=== PATIENT | female | born 1950 | race Caucasian/White ===

== ENCOUNTER 2018-12-04 08:20 | Emergency (ER) | payer MEDICARE, OTHER ==
[~2018-12-04] VITALS: Ht 160 cm; Wt 86.4 kg
[~2018-12-04 08:20] MED LIST: ACET-66 PO; AMOX1TAB16 PO; ASPI-1182 PO; GLIP10TA9 PO; IBUP-2077 PO; LEVO250 PO; LOSA25TA41 PO; METF-960 PO; OMEP20 PO; SIMV5TAB59 PO
[2018-12-04 08:35] LABS: GLUCOSE,POINT OF CARE 279 MG/DL (70-110)
[2018-12-04] MEDS ORDERED: ONDANSETRON HCL 4 MG TABLET PO ONE (09:00)
[2018-12-04] MEDS ORDERED: ACETAMINOPHEN 500 MG TABLET PO ONE (09:00)
[2018-12-04] MEDS ORDERED: KETOROLAC TROMETHAMINE 60 MG/2 ML VIAL IM ONE (09:00)
[2018-12-04 09:12] LABS: BASOPHILS % (AUTO) 1.3 % (0.0-2.0); EOSINOPHILS % (AUTO) 3.8 % (1.0-6.0); HEMATOCRIT 43.6 % (36-46); HEMOGLOBIN 14.6 g/dL (12.0-16.0); LYMPHOCYTES # (AUTO) 1.5 K/uL (1.0-4.8); LYMPHOCYTES % (AUTO) 15.9 % (22.0-44.0); MEAN CORPUSCULAR HEMOGLOBIN 29.1 pg (26.0-34.0); MEAN CORPUSCULAR HGB CONC 33.5 G/dL (31.0-37.0); MEAN CORPUSCULAR VOLUME 87 fL (80-100); MONOCYTES # (AUTO) 0.6 K/uL (0.1-1.0); MONOCYTES % (AUTO) 6.1 % (2.0-9.0); NEUTROPHILS # (AUTO) 6.7 K/uL (1.8-7.7); NEUTROPHILS % (AUTO) 72.9 % (40.0-70.0); PLATELET COUNT (AUTO) 372 K/uL (150-450); RED BLOOD CELL COUNT(AUTO) 5.02 MIL/uL (4.00-5.20); RED CELL DISTRIBUTION WIDTH 13.2 % (11.5-14.5)
[2018-12-04 09:24] LABS: CALCIUM, TOTAL 9.7 mg/dL (8.8-10.5); CREATININE 1.1 mg/dL (0.60-1.30); POTASSIUM 4.9 mmol/L (3.5-5.1)
[2018-12-04 09:29] LABS: ALBUMIN 3.9 g/dL (3.4-5.0); BILIRUBIN,TOTAL 0.4 mg/dL (0.1-1.0); TOTAL PROTEIN, SERUM 7.9 g/dL (6.4-8.2)
[2018-12-04] MEDS ORDERED: BACLOFEN 10 MG TABLET PO ONE (10:15)
[2018-12-04 11:16] LABS: APPEARANCE,URINE CLOUDY (CLEAR); GLUCOSE, URINE (UA) >=1000 mg/dL (NEGATIVE); KETONES,URINE TRACE mg/dL (NEGATIVE); LEUKOCYTE ESTERASE ,URINE SMALL (NEGATIVE); NITRATE,URINE NEGATIVE (NEGATIVE); OCCULT BLOOD,URINE NEGATIVE (NEGATIVE); PROTEIN,URINE POS 1+ (NEGATIVE)
[2018-12-04 11:21] LABS: BILIRUBIN,URINE PRELIM. POSITIVE (NEGATIVE)
[2018-12-04 11:22] LABS: RBC,URINE 0-2 /HPF (0-2)
[2018-12-04 11:23] LABS: BACTERIA,URINE Moderate /HPF (None Seen); SQUAMOUS EPITHELIAL CELL,UR Many /LPF (None Seen)
[2018-12-04 11:31] VITALS: BP 122/74
== END 2018-12-04 12:15 | disposition home or self-care (01) ==
LOC: EMS 08:22
DX: M54.5 Low back pain (principal); E11.65 Type 2 diabetes mellitus with hyperglycemia; F17.210 Nicotine dependence, cigarettes, uncomplicated; F14.90 Cocaine use, unspecified, uncomplicated; J44.9 Chronic obstructive pulmonary disease, unspecified; I25.2 Old myocardial infarction; Z88.0 Allergy status to penicillin; Z79.84 Long term (current) use of oral hypoglycemic drugs; Z79.82 Long term (current) use of aspirin; Z79.899 Other long term (current) drug therapy
CPT/HCPCS: 36415; 72070; 72100; 80053; 81001; 82962; 84484; 85025; 87086; 93005; 96372; 99284; J1885; Q0162

== ENCOUNTER 2018-12-11 11:47 | Emergency (ER) | payer MEDICARE, OTHER ==
[~2018-12-11] VITALS: Ht 162.6 cm; Wt 88.6 kg
[~2018-12-11 11:47] MED LIST changes: -AMOX1TAB16 PO; -LEVO250 PO
[2018-12-11] MEDS ORDERED: BACL10TA PO (12:17)
[2018-12-11] MEDS ORDERED: ONDANSETRON HCL 4 MG/2 ML VIAL IVP ONE (12:30)
[2018-12-11] MEDS ORDERED: SODIUM CHLORIDE 0.9% 1,000 ML IV ONE (12:30)
[2018-12-11] MEDS ORDERED: KETOROLAC TROMETHAMINE 30 MG/ML VIAL IVP ONE (12:30)
[2018-12-11 13:07] LABS: BASOPHILS % (AUTO) 1.1 % (0.0-2.0); EOSINOPHILS % (AUTO) 2.2 % (1.0-6.0); HEMOGLOBIN 14.6 g/dL (12.0-16.0); LYMPHOCYTES % (AUTO) 18.2 % (22.0-44.0); MEAN CORPUSCULAR HGB CONC 33.3 G/dL (31.0-37.0); MEAN CORPUSCULAR VOLUME 87 fL (80-100); MONOCYTES # (AUTO) 0.6 K/uL (0.1-1.0); MONOCYTES % (AUTO) 5.7 % (2.0-9.0); NEUTROPHILS # (AUTO) 7.8 K/uL (1.8-7.7); NEUTROPHILS % (AUTO) 72.8 % (40.0-70.0); PLATELET COUNT (AUTO) 435 K/uL (150-450); RED BLOOD CELL COUNT(AUTO) 5.05 MIL/uL (4.00-5.20); RED CELL DISTRIBUTION WIDTH 13.3 % (11.5-14.5)
[2018-12-11 13:21] LABS: CALCIUM, TOTAL 9.5 mg/dL (8.8-10.5); CREATININE 1.12 mg/dL (0.60-1.30); POTASSIUM 4.4 mmol/L (3.5-5.1)
[2018-12-11 13:25] LABS: ALBUMIN 4.1 g/dL (3.4-5.0); BILIRUBIN,TOTAL 0.3 mg/dL (0.1-1.0); TOTAL PROTEIN, SERUM 7.8 g/dL (6.4-8.2)
[2018-12-11 14:46] LABS: APPEARANCE,URINE CLEAR (CLEAR); BILIRUBIN,URINE NEGATIVE (NEGATIVE); GLUCOSE, URINE (UA) >=1000 mg/dL (NEGATIVE); KETONES,URINE NEGATIVE (NEGATIVE); LEUKOCYTE ESTERASE ,URINE NEGATIVE (NEGATIVE); NITRATE,URINE NEGATIVE (NEGATIVE); OCCULT BLOOD,URINE NEGATIVE (NEGATIVE); PROTEIN,URINE NEGATIVE (NEGATIVE); UROBILINOGEN,URINE 0.2 mg/dL (<=1.0)
[2018-12-11 14:55] LABS: BACTERIA,URINE None Seen /HPF (None Seen); RBC,URINE None Seen /HPF (0-2); SQUAMOUS EPITHELIAL CELL,UR Rare /LPF (None Seen); WBC,URINE None Seen /HPF (0-5)
[2018-12-11] MEDS ORDERED: LIDOCAINE 5% TRANSDERMAL PATCH TD ONE (15:15)
[2018-12-11 15:27] VITALS: BP 127/61
== END 2018-12-11 15:32 | disposition home or self-care (01) ==
LOC: EMS 11:47
DX: K59.00 Constipation, unspecified (principal); M54.9 Dorsalgia, unspecified; F17.210 Nicotine dependence, cigarettes, uncomplicated; F14.90 Cocaine use, unspecified, uncomplicated; J44.9 Chronic obstructive pulmonary disease, unspecified; E11.9 Type 2 diabetes mellitus without complications; Z88.0 Allergy status to penicillin; Z88.1 Allergy status to other antibiotic agents; Z79.84 Long term (current) use of oral hypoglycemic drugs; Z79.82 Long term (current) use of aspirin; Z79.899 Other long term (current) drug therapy; E66.01 Morbid (severe) obesity due to excess calories; Z68.33 Body mass index [BMI] 33.0-33.9, adult
CPT/HCPCS: 36415; 71045; 74176; 80053; 81001; 82962; 83690; 84484; 85025; 93005; 96374; 96375; 99285; J1885; J2405

== ENCOUNTER 2025-05-18 11:59 | Inpatient (IN) | payer MEDICARE, OTHER ==
[~2025-05-18] VITALS: Ht 154.9 cm; Wt 81.7 kg
[2025-05-18] VITALS (16 sets, daily range): BP systolic 129–164; BP diastolic 54–103; PULSE 63–110; RESP 15–32; TEMP 97.9–98.7; O2SAT 92–99
[~2025-05-18 11:59] MED LIST changes: -ASPI-1182 PO; +ASPI-1444 PO; +ATOR20TA65 PO; +AZIT-167 PO; +BACL10TA PO; +CEPH-558 PO; +FLUT1BLS IH; +FURO40TA5 PO; +GLIP10TA16 PO; -GLIP10TA9 PO; +IPRA4AER IH; +LOSA-382 PO; -LOSA25TA41 PO; +METF-1211 PO; -METF-960 PO; -OMEP20 PO; +PANT-31 PO; -SIMV5TAB59 PO
[2025-05-18 12:30] LABS: RED CELL DISTRIBUTION WIDTH 22.0 % (11.5-14.5)
[2025-05-18 12:34] LABS: CALCIUM, TOTAL 8.0 mg/dL (8.8-10.5); CREATININE 1.10 mg/dL (0.60-1.30); GLOMERULAR FILTR. RATE CALC 49 mL/min (>60); GLUCOSE,RANDOM 393 mg/dL (70-110); SODIUM SERUM 131 mmol/L (136-145); UREA NITROGEN, BLOOD 15 mg/dL (7-18)
[2025-05-18] MEDS ORDERED: FUROSEMIDE 20 MG/2 ML VIAL ONE (12:35)
[2025-05-18] MEDS ORDERED: NITROGLYCERIN 2% (1 GM=INCH) OINTMENT PACKET TP ONE (12:35)
[2025-05-18 12:36] LABS: PLATELET COUNT (AUTO) 523 K/uL (150-450); RED BLOOD CELL COUNT(AUTO) 2.65 MIL/uL (4.00-5.20); WHITE BLOOD COUNT (AUTO) 14.0 K/uL (4.5-11.0)
[2025-05-18] MEDS ORDERED: AZITHROMYCIN 500 MG/NS 250 ML IV ONE (12:36)
[2025-05-18] MEDS ORDERED: CefTRIAXone 1 GM/DEXTROSE 50 ML IV ONE (12:36)
[2025-05-18] MEDS: FUROSEMIDE 20 MG/2 ML VIAL IVP ONE (12:38)
[2025-05-18 12:39] LABS: FRACTIONATED INSPIRED OXYGEN 40.0 % (21-100.0); SOURCE, BLOOD GAS ARTERIAL; TEMPERATURE, FAHRENHEIT, BG 95.5 FAHREN (96.0-98.6)
[2025-05-18] MEDS: NITROGLYCERIN 2% (1 GM=INCH) OINTMENT PACKET TP ONE (12:39)
[2025-05-18] MEDS: AZITHROMYCIN 500 MG/NS 250 ML IV ONE (12:39)
[2025-05-18] MEDS: CefTRIAXone 1 GM/DEXTROSE 50 ML IV ONE (12:40)
[2025-05-18 12:41] LABS: GLUCOMETER DEV NAME(LOC) ER.7; GLUCOSE,POINT OF CARE 357 MG/DL (70-110)
[2025-05-18 12:41] LABS: CREATINE KINASE, TOTAL ONLY 70 U/L (26-192)
[2025-05-18 12:45] LABS: TROPONIN I-HIGH SENSITIVITY 19 ng/L (<51)
[2025-05-18 12:48] LABS: RBC MORPHOLOGY COMMENT ABNORMAL RBC MORPH
[2025-05-18] MEDS: IPRATROPIUM BROMIDE 0.5 MG/2.5 ML NEB SOLUTION NEB ONE (12:48)
[2025-05-18] MEDS: ALBUTEROL SULFATE 2.5 MG/0.5 ML NEB SOLUTION NEB ONE (12:48)
[2025-05-18 12:49] LABS: LACTIC ACID 6.4 mmol/L (0.4-2.0)
[2025-05-18 12:53] LABS: PLATELET MORPHOLOGY COMMENT LARGE PLTS PRESENT
[2025-05-18 12:57] LABS: ACETONE,BLOOD TRACE (NEGATIVE)
[2025-05-18 13:06] LABS: ABG BASE EXCESS -5.4 mmol/L (-2.0-3.0); ABG CARBOXYHEMOGLOBIN 2.6 % (0.5-1.5); ABG HCO3 20.2 mmol/L (21.0-28.0); ABG METHEMOGLOBIN 0.8 % (0.0-1.5); ABG OXYGEN CONTENT 6.9 mL/dL (15.0-23.0); ABG OXYGEN SATURATION 96.8 % (94.0-98.0); ABG OXYHEMOGLOBIN 93.5 % (94.0-98.0); ABG PCO2 29 mmHg (32.0-45.0); ABG PH 7.435 (7.350-7.450); PO2, ARTERIAL BG 80.5 mmHg (83.0-108.0)
[2025-05-18 13:10] LABS: ABG TOTAL HEMOGLOBIN 5.1 G/dL (12.0-16.0); SITE, BLOOD GAS RT BRACHIAL; VENT MODE, BG BIPAP (ROOM AIR)
[2025-05-18] MEDS ORDERED: MAGNESIUM HYDROXIDE SUSPENSION 30 ML UDCUP PO PRN (13:15)
[2025-05-18] MEDS ORDERED: BISACODYL 10 MG RECTAL RECTAL SUPPOSITORY PR PRN (13:15)
[2025-05-18] MEDS ORDERED: DEXTROSE 50%-WATER 25 GM/50 ML SYRINGE IVP PRN (13:15)
[2025-05-18] MEDS: PANTOPRAZOLE SODIUM 40 MG/VIAL IVP ONE (13:30)
[2025-05-18] MEDS ORDERED: FLUT12AE3 IH (13:40)
[2025-05-18] MEDS ORDERED: SUCR1ORA42 PO (13:40)
[2025-05-18] MEDS ORDERED: GLIP10TA17 PO (13:40)
[2025-05-18] MEDS ORDERED: ESCI20TA87 PO (13:40)
[2025-05-18] MEDS ORDERED: FERR-82 PO (13:40)
[2025-05-18] MEDS ORDERED: PANT-31 PO (13:40)
[2025-05-18] MEDS ORDERED: DOCU100C33 PO (13:40)
[2025-05-18] MEDS: INSULIN GLARGINE,HUM.REC.ANLOG 100 UNITS/ML SQ ONE (15:01)
[2025-05-18 17:12] LABS: PLATELET COUNT (AUTO) 451 K/uL (150-450); RED BLOOD CELL COUNT(AUTO) 3.12 MIL/uL (4.00-5.20); RED CELL DISTRIBUTION WIDTH 25.2 % (11.5-14.5); WHITE BLOOD COUNT (AUTO) 13.3 K/uL (4.5-11.0)
[2025-05-18 18:26] LABS: RBC MORPHOLOGY COMMENT ABNORMAL RBC MORPH
[2025-05-18] MEDS: ALBUTEROL SULFATE 2.5 MG/0.5 ML NEB SOLUTION NEB SCH (19:47)
[2025-05-18] MEDS: IPRATROPIUM BROMIDE 0.5 MG/2.5 ML NEB SOLUTION NEB SCH (19:47)
[2025-05-18] MEDS: PANTOPRAZOLE SODIUM 40 MG/VIAL IVP SCH (20:49)
[2025-05-18 21:06] LABS: ABG BASE EXCESS -4.9 mmol/L (-2.0-3.0); ABG CARBOXYHEMOGLOBIN 2.3 % (0.5-1.5); ABG HCO3 20.7 mmol/L (21.0-28.0); ABG METHEMOGLOBIN 0.3 % (0.0-1.5); ABG OXYGEN CONTENT 10.1 mL/dL (15.0-23.0); ABG OXYGEN SATURATION 94.8 % (94.0-98.0); ABG OXYHEMOGLOBIN 92.3 % (94.0-98.0); ABG PCO2 38 mmHg (32.0-45.0); ABG PH 7.351 (7.350-7.450); ABG TOTAL HEMOGLOBIN 7.7 G/dL (12.0-16.0); FRACTIONATED INSPIRED OXYGEN 40.0 % (21-100.0); PO2, ARTERIAL BG 75.0 mmHg (83.0-108.0); SOURCE, BLOOD GAS ARTERIAL; TEMPERATURE, FAHRENHEIT, BG 98.7 FAHREN (96.0-98.6)
[2025-05-18 21:09] LABS: ABG A-A DIFF O2 166.1 mmHg (10-20.0); ALLEN TEST, BLOOD GAS Positive; O2 DEVICE,BLOOD GAS CANNULA (ROOM AIR); SITE, BLOOD GAS RT BRACHIAL
[2025-05-18 21:10] LABS: PATIENT RATE, BG 28.0 min.
[2025-05-18] MEDS: INSULIN LISPRO 100 UNITS/ML SQ PRN (21:22)
[2025-05-18] MEDS: DOCUSATE SODIUM 100 MG CAPSULE PO SCH (21:24)
[2025-05-18] MEDS: CHLORHEXIDINE GLUCONATE 2% TOWELETTE [2'S/6'S] TP SCH (21:24)
[2025-05-18] MEDS: INSULIN GLARGINE,HUM.REC.ANLOG 100 UNITS/ML SQ SCH (21:24)
[2025-05-18] MEDS: ETHYL ALCOHOL 62% ANTISEPTIC NASAL SANITIZER 0.6 ML AMPUL NASAL SCH (21:30)
[2025-05-18 21:46] LABS: GLUCOMETER DEV NAME(LOC) ICUN.6; GLUCOSE,POINT OF CARE 369 MG/DL (70-110)
[2025-05-19] VITALS (17 sets, daily range): BP systolic 117–136; BP diastolic 48–64; PULSE 59–108; RESP 15–25; TEMP 98–98.3; O2SAT 88–99
[2025-05-19 07:10] LABS: GLUCOMETER DEV NAME(LOC) ICUN.6; GLUCOSE,POINT OF CARE 291 MG/DL (70-110)
[2025-05-19 07:35] LABS: CALCIUM, TOTAL 8.7 mg/dL (8.8-10.5); CREATININE 0.86 mg/dL (0.60-1.30); GLOMERULAR FILTR. RATE CALC > 60 mL/min (>60); GLUCOSE,RANDOM 296 mg/dL (70-110); SODIUM SERUM 134 mmol/L (136-145); TROPONIN I-HIGH SENSITIVITY 22 ng/L (<51); UREA NITROGEN, BLOOD 17 mg/dL (7-18)
[2025-05-19] MEDS: FUROSEMIDE 20 MG/2 ML VIAL IVP SCH (08:52)
[2025-05-19] MEDS ORDERED: FUROSEMIDE 20 MG TABLET PO SCH (09:00)
[2025-05-19 11:41] LABS: PLATELET COUNT (AUTO) 409 K/uL (150-450); RED BLOOD CELL COUNT(AUTO) 3.70 MIL/uL (4.00-5.20); RED CELL DISTRIBUTION WIDTH 23.8 % (11.5-14.5); WHITE BLOOD COUNT (AUTO) 13.2 K/uL (4.5-11.0)
[2025-05-19 12:16] LABS: GLUCOMETER DEV NAME(LOC) ICUN.6; GLUCOSE,POINT OF CARE 341 MG/DL (70-110)
[2025-05-19 12:20] LABS: RBC MORPHOLOGY COMMENT ABNORMAL RBC MORPH
[2025-05-19] MEDS: AZITHROMYCIN 500 MG/NS 250 ML IV SCH (12:34)
[2025-05-19] MEDS: CefTRIAXone 1 GM/DEXTROSE 50 ML IV SCH (13:33)
[2025-05-19 19:45] LABS: GLUCOMETER DEV NAME(LOC) ICUN.6; GLUCOSE,POINT OF CARE 477 MG/DL (70-110)
[2025-05-19 21:05] LABS: GLUCOMETER DEV NAME(LOC) ICU.S7; GLUCOSE,POINT OF CARE 544 MG/DL (70-110)
[2025-05-19] MEDS: INSULIN LISPRO 100 UNITS/ML SQ ONE (21:13)
[2025-05-19] MEDS: INSULIN GLARGINE,HUM.REC.ANLOG 100 UNITS/ML SQ SCH (21:13)
[2025-05-19] MEDS ORDERED: DEXTROSE 50%-WATER 25 GM/50 ML SYRINGE IVP PRN (21:15)
[2025-05-20] VITALS (26 sets, daily range): BP systolic 87–143; BP diastolic 43–76; PULSE 79–141; RESP 18–36; TEMP 97.8–98.7; O2SAT 89–98
[2025-05-20 06:14] LABS: PLATELET COUNT (AUTO) 360 K/uL (150-450); RED BLOOD CELL COUNT(AUTO) 3.49 MIL/uL (4.00-5.20); RED CELL DISTRIBUTION WIDTH 24.7 % (11.5-14.5); WHITE BLOOD COUNT (AUTO) 15.2 K/uL (4.5-11.0)
[2025-05-20 06:23] LABS: CALCIUM, TOTAL 8.6 mg/dL (8.8-10.5); CREATININE 1.05 mg/dL (0.60-1.30); GLOMERULAR FILTR. RATE CALC 51.0 mL/min (>60); SODIUM SERUM 132.0 mmol/L (136-145); UREA NITROGEN, BLOOD 21.0 mg/dL (7-18)
[2025-05-20 06:34] LABS: GLUCOSE,RANDOM 444.0 mg/dL (70-110)
[2025-05-20 06:40] LABS: GLUCOMETER DEV NAME(LOC) ICUN.6; GLUCOSE,POINT OF CARE 406 MG/DL (70-110)
[2025-05-20] MEDS ORDERED: INSULIN LISPRO 100 UNITS/ML SQ ONE (07:00)
[2025-05-20] MEDS: INSULIN LISPRO 100 UNITS/ML SQ ONE ×2 (07:04→08:43)
[2025-05-20 08:21] LABS: RBC MORPHOLOGY COMMENT ABNORMAL RBC MORPH
[2025-05-20] MEDS ORDERED: SODIUM CHLORIDE 0.9% 250 ML IV ONE ×2 (09:23→13:54)
[2025-05-20 09:25] LABS: GLUCOMETER DEV NAME(LOC) ICU.S7; GLUCOSE,POINT OF CARE 430 MG/DL (70-110)
[2025-05-20] MEDS ORDERED: SODIUM CHLORIDE 0.9% 1,000 ML ONE (09:45)
[2025-05-20] MEDS: INSULIN LISPRO 100 UNITS/ML SQ PRN (12:13)
[2025-05-20 12:40] LABS: GLUCOMETER DEV NAME(LOC) ICU.S7; GLUCOSE,POINT OF CARE 395 MG/DL (70-110)
[2025-05-20 17:15] LABS: GLUCOMETER DEV NAME(LOC) ICUN.6; GLUCOSE,POINT OF CARE 234 MG/DL (70-110)
[2025-05-20 21:15] LABS: GLUCOMETER DEV NAME(LOC) 5S.2D; GLUCOSE,POINT OF CARE 166 MG/DL (70-110)
[2025-05-21] VITALS (14 sets, daily range): BP systolic 112–133; BP diastolic 60–90; PULSE 64–109; RESP 18–20; TEMP 97.5–99.1; O2SAT 90–100
[2025-05-21 06:45] LABS: GLUCOMETER DEV NAME(LOC) 5S.2D; GLUCOSE,POINT OF CARE 101 MG/DL (70-110)
[2025-05-21 07:02] LABS: PLATELET COUNT (AUTO) 301 K/uL (150-450); RED BLOOD CELL COUNT(AUTO) 4.07 MIL/uL (4.00-5.20); RED CELL DISTRIBUTION WIDTH 26.8 % (11.5-14.5); WHITE BLOOD COUNT (AUTO) 15.9 K/uL (4.5-11.0)
[2025-05-21 07:06] LABS: CALCIUM, TOTAL 8.4 mg/dL (8.8-10.5); CREATININE 0.80 mg/dL (0.60-1.30); GLOMERULAR FILTR. RATE CALC > 60 mL/min (>60); GLUCOSE,RANDOM 93 mg/dL (70-110); SODIUM SERUM 136 mmol/L (136-145); UREA NITROGEN, BLOOD 18 mg/dL (7-18)
[2025-05-21 07:43] LABS: RBC MORPHOLOGY COMMENT ABNORMAL RBC MORPH
[2025-05-21] MEDS ORDERED: SODIUM CHLORIDE 0.9% 250 ML IV ONE (12:14)
[2025-05-21 13:11] LABS: GLUCOMETER DEV NAME(LOC) 5N.2C; GLUCOSE,POINT OF CARE 236 MG/DL (70-110)
[2025-05-21 19:11] LABS: GLUCOMETER DEV NAME(LOC) 5S.2D; GLUCOSE,POINT OF CARE 359 MG/DL (70-110)
[2025-05-21] MEDS: INSULIN GLARGINE,HUM.REC.ANLOG 100 UNITS/ML SQ SCH (20:27)
[2025-05-21 23:06] LABS: GLUCOMETER DEV NAME(LOC) 5N.2C; GLUCOSE,POINT OF CARE 235 MG/DL (70-110)
[2025-05-22] VITALS (16 sets, daily range): BP systolic 108–140; BP diastolic 63–109; PULSE 79–109; RESP 18–22; TEMP 97.7–98.8; O2SAT 86–100
[2025-05-22 06:14] LABS: PLATELET COUNT (AUTO) 272 K/uL (150-450); RED BLOOD CELL COUNT(AUTO) 4.08 MIL/uL (4.00-5.20); RED CELL DISTRIBUTION WIDTH 26.7 % (11.5-14.5); WHITE BLOOD COUNT (AUTO) 14.9 K/uL (4.5-11.0)
[2025-05-22 06:31] LABS: GLUCOMETER DEV NAME(LOC) 5S.2D; GLUCOSE,POINT OF CARE 164 MG/DL (70-110)
[2025-05-22 06:38] LABS: CALCIUM, TOTAL 8.4 mg/dL (8.8-10.5); CREATININE 0.68 mg/dL (0.60-1.30); GLOMERULAR FILTR. RATE CALC > 60 mL/min (>60); GLUCOSE,RANDOM 157 mg/dL (70-110); SODIUM SERUM 137 mmol/L (136-145); UREA NITROGEN, BLOOD 18 mg/dL (7-18)
[2025-05-22 07:27] LABS: RBC MORPHOLOGY COMMENT ABNORMAL RBC MORPH
[2025-05-22 12:20] LABS: GLUCOMETER DEV NAME(LOC) 5N.2C; GLUCOSE,POINT OF CARE 282 MG/DL (70-110)
[2025-05-22] MEDS: ACETAMINOPHEN 325 MG TABLET PO PRN (12:22)
[2025-05-22 18:26] LABS: GLUCOMETER DEV NAME(LOC) 5N.2C; GLUCOSE,POINT OF CARE 348 MG/DL (70-110)
[2025-05-23] VITALS (14 sets, daily range): BP systolic 111–141; BP diastolic 53–91; PULSE 89–100; RESP 18–22; TEMP 97.7–98.6; O2SAT 91–98
[2025-05-23 02:01] LABS: GLUCOMETER DEV NAME(LOC) 5S.2D; GLUCOSE,POINT OF CARE 280 MG/DL (70-110)
[2025-05-23 06:30] LABS: PLATELET COUNT (AUTO) 245 K/uL (150-450); RED BLOOD CELL COUNT(AUTO) 3.85 MIL/uL (4.00-5.20); RED CELL DISTRIBUTION WIDTH 27.7 % (11.5-14.5); WHITE BLOOD COUNT (AUTO) 12.7 K/uL (4.5-11.0)
[2025-05-23 06:43] LABS: CALCIUM, TOTAL 8.4 mg/dL (8.8-10.5); CREATININE 0.49 mg/dL (0.60-1.30); GLOMERULAR FILTR. RATE CALC > 60 mL/min (>60); GLUCOSE,RANDOM 162 mg/dL (70-110); SODIUM SERUM 137 mmol/L (136-145); UREA NITROGEN, BLOOD 16 mg/dL (7-18)
[2025-05-23] MEDS: FUROSEMIDE 20 MG/2 ML VIAL IVP SCH (09:24)
[2025-05-23 13:20] LABS: ABG A-A DIFF O2 51.3 mmHg (10-20.0); ABG BASE EXCESS 2.6 mmol/L (-2.0-3.0); ABG CARBOXYHEMOGLOBIN 1.4 % (0.5-1.5); ABG HCO3 26.4 mmol/L (21.0-28.0); ABG METHEMOGLOBIN 0.3 % (0.0-1.5); ABG OXYGEN CONTENT 10.9 mL/dL (15.0-23.0); ABG OXYGEN SATURATION 85.7 % (94.0-98.0); ABG OXYHEMOGLOBIN 84.2 % (94.0-98.0); ABG PCO2 42 mmHg (32.0-45.0); ABG PH 7.427 (7.350-7.450); ABG TOTAL HEMOGLOBIN 9.2 G/dL (12.0-16.0); ALLEN TEST, BLOOD GAS Positive; FRACTIONATED INSPIRED OXYGEN 21.0 % (21-100.0); PO2, ARTERIAL BG 48.4 mmHg (83.0-108.0); SITE, BLOOD GAS RT RADIAL; SOURCE, BLOOD GAS ARTERIAL; TEMPERATURE, FAHRENHEIT, BG 98.6 FAHREN (96.0-98.6)
[2025-05-23 13:21] LABS: O2 DEVICE,BLOOD GAS ROOM AIR (ROOM AIR)
[2025-05-23 18:21] LABS: GLUCOMETER DEV NAME(LOC) 5S.2D; GLUCOSE,POINT OF CARE 309 MG/DL (70-110)
[2025-05-23 18:21] LABS: GLUCOMETER DEV NAME(LOC) 5S.2D; GLUCOSE,POINT OF CARE 162 MG/DL (70-110)
[2025-05-23 18:21] LABS: GLUCOMETER DEV NAME(LOC) 5S.2D; GLUCOSE,POINT OF CARE 377 MG/DL (70-110)
[2025-05-24] VITALS (8 sets, daily range): BP systolic 92–143; BP diastolic 60–78; PULSE 86–109; RESP 18–21; TEMP 97.5–98.6; O2SAT 91–96
[2025-05-24 07:23] LABS: RED BLOOD CELL COUNT(AUTO) 4.05 MIL/uL (4.00-5.20); WHITE BLOOD COUNT (AUTO) 13.1 K/uL (4.5-11.0)
[2025-05-24 07:24] LABS: PLATELET COUNT (AUTO) 253 K/uL (150-450); RED CELL DISTRIBUTION WIDTH 28.4 % (11.5-14.5)
[2025-05-24 07:42] LABS: CALCIUM, TOTAL 8.5 mg/dL (8.8-10.5); CREATININE 0.95 mg/dL (0.60-1.30); GLOMERULAR FILTR. RATE CALC 58.0 mL/min (>60); GLUCOSE,RANDOM 247.0 mg/dL (70-110); SODIUM SERUM 137.0 mmol/L (136-145); UREA NITROGEN, BLOOD 20.0 mg/dL (7-18)
[2025-05-24 10:25] LABS: GLUCOMETER DEV NAME(LOC) 5N.2C; GLUCOSE,POINT OF CARE 259 MG/DL (70-110)
[2025-05-24 10:25] LABS: GLUCOMETER DEV NAME(LOC) 5N.2C; GLUCOSE,POINT OF CARE 192 MG/DL (70-110)
[2025-05-24] MEDS: ONDANSETRON HCL 4 MG/2 ML VIAL IVP PRN (12:22)
[2025-05-24 14:11] LABS: GLUCOMETER DEV NAME(LOC) 5N.2C; GLUCOSE,POINT OF CARE 198 MG/DL (70-110)
[2025-05-24 17:45] LABS: GLUCOMETER DEV NAME(LOC) 5N.2C; GLUCOSE,POINT OF CARE 184 MG/DL (70-110)
[2025-05-25] VITALS (27 sets, daily range): BP systolic 116–155; BP diastolic 60–115; PULSE 75–129; RESP 20–35; TEMP 97.9–99.1; O2SAT 86–98
[2025-05-25 05:10] LABS: GLUCOMETER DEV NAME(LOC) 5N.2C; GLUCOSE,POINT OF CARE 187 MG/DL (70-110)
[2025-05-25 07:05] LABS: GLUCOMETER DEV NAME(LOC) 5N.1D; GLUCOSE,POINT OF CARE 242 MG/DL (70-110)
[2025-05-25 07:25] LABS: RED BLOOD CELL COUNT(AUTO) 4.21 MIL/uL (4.00-5.20); RED CELL DISTRIBUTION WIDTH 28.7 % (11.5-14.5); WHITE BLOOD COUNT (AUTO) 13.0 K/uL (4.5-11.0)
[2025-05-25 07:31] LABS: PLATELET COUNT (AUTO) 210 K/uL (150-450)
[2025-05-25 07:32] LABS: RBC MORPHOLOGY COMMENT ABNORMAL RBC MORPH
[2025-05-25 07:33] LABS: CALCIUM, TOTAL 8.6 mg/dL (8.8-10.5); CREATININE 1.18 mg/dL (0.60-1.30); GLOMERULAR FILTR. RATE CALC 45.0 mL/min (>60); GLUCOSE,RANDOM 236.0 mg/dL (70-110); SODIUM SERUM 137.0 mmol/L (136-145); UREA NITROGEN, BLOOD 23.0 mg/dL (7-18)
[2025-05-25 09:23] LABS: ABG BASE EXCESS 0.8 mmol/L (-2.0-3.0); ABG CARBOXYHEMOGLOBIN 1.7 % (0.5-1.5); ABG HCO3 24.5 mmol/L (21.0-28.0); ABG METHEMOGLOBIN 0.3 % (0.0-1.5); ABG OXYGEN CONTENT 10.1 mL/dL (15.0-23.0); ABG OXYHEMOGLOBIN 76.9 % (94.0-98.0); ABG PCO2 55 mmHg (32.0-45.0); ABG PH 7.309 (7.350-7.450); ABG TOTAL HEMOGLOBIN 9.3 G/dL (12.0-16.0); FRACTIONATED INSPIRED OXYGEN 100.0 % (21-100.0); SOURCE, BLOOD GAS ARTERIAL; TEMPERATURE, FAHRENHEIT, BG 97.9 FAHREN (96.0-98.6)
[2025-05-25 09:25] LABS: ABG OXYGEN SATURATION 78.5 % (94.0-98.0); ALLEN TEST, BLOOD GAS Positive; FLOW, BLOOD GAS 15.00 L/min (0.00-15.00); PO2, ARTERIAL BG 44.8 mmHg (83.0-108.0); SITE, BLOOD GAS RT RADIAL
[2025-05-25 09:26] LABS: ABG A-A DIFF O2 614.0 mmHg (10-20.0); O2 DEVICE,BLOOD GAS NON REBREATHER (ROOM AIR)
[2025-05-25] MEDS ORDERED: SODIUM CHLORIDE 0.9% 250 ML IV ONE (11:23)
[2025-05-25 12:39] LABS: PLATELET COUNT (AUTO) 290 K/uL (150-450); RED BLOOD CELL COUNT(AUTO) 4.25 MIL/uL (4.00-5.20); RED CELL DISTRIBUTION WIDTH 29.4 % (11.5-14.5); WHITE BLOOD COUNT (AUTO) 14.0 K/uL (4.5-11.0)
[2025-05-25 12:40] LABS: CALCIUM, TOTAL 8.7 mg/dL (8.8-10.5); CREATININE 1.25 mg/dL (0.60-1.30); GLOMERULAR FILTR. RATE CALC 42.0 mL/min (>60); GLUCOSE,RANDOM 267.0 mg/dL (70-110); SODIUM SERUM 135.0 mmol/L (136-145); UREA NITROGEN, BLOOD 26.0 mg/dL (7-18)
[2025-05-25 12:41] LABS: GLUCOMETER DEV NAME(LOC) ICUN.6; GLUCOSE,POINT OF CARE 232 MG/DL (70-110)
[2025-05-25 12:44] LABS: ASPARTATE AMINOTRANSFERASE 23.0 U/L (15-37); PHOSPHORUS 4.7 mg/dL (2.5-4.9); TOTAL PROTEIN, SERUM 7.1 g/dL (6.4-8.2)
[2025-05-25] MEDS: *CLINICAL-CEFEPIME DOSING CLINICAL ONE (12:53)
[2025-05-25 12:55] LABS: RBC MORPHOLOGY COMMENT ABNORMAL RBC MORPH
[2025-05-25] MEDS ORDERED: 0.9% SODIUM CHLORIDE 5 ML NEB SOLUTION NEB ONE ×2 (13:18→16:00)
[2025-05-25] MEDS: ALBUTEROL SULFATE 2.5 MG/0.5 ML NEB SOLUTION NEB PRN (13:22)
[2025-05-25] MEDS: ACETYLCYSTEINE 10% 100 MG/ML 4 ML NEB SOLUTION NEB SCH ×2 (13:22→19:40)
[2025-05-25] MEDS: CEFEPIME HCL 2 GM in DEXTROSE 5%-WATER 50 ML IV SCH (13:39)
[2025-05-25] MEDS ORDERED: DEXMEDETOMIDINE 400 MCG/NS 100 ML IV ONE (15:48)
[2025-05-25] MEDS: DEXMEDETOMIDINE 400 MCG/NS 100 ML IV PRN (16:00)
[2025-05-25 16:50] LABS: ABG BASE EXCESS 0.5 mmol/L (-2.0-3.0); ABG CARBOXYHEMOGLOBIN 0.7 % (0.5-1.5); ABG HCO3 24.8 mmol/L (21.0-28.0); ABG METHEMOGLOBIN 0.3 % (0.0-1.5); ABG OXYGEN CONTENT 13.0 mL/dL (15.0-23.0); ABG OXYGEN SATURATION 96.6 % (94.0-98.0); ABG OXYHEMOGLOBIN 95.6 % (94.0-98.0); ABG PCO2 45 mmHg (32.0-45.0); ABG PH 7.377 (7.350-7.450); ABG TOTAL HEMOGLOBIN 9.6 G/dL (12.0-16.0); FRACTIONATED INSPIRED OXYGEN 100.0 % (21-100.0); PO2, ARTERIAL BG 87.1 mmHg (83.0-108.0); SOURCE, BLOOD GAS ARTERIAL; TEMPERATURE, FAHRENHEIT, BG 98.2 FAHREN (96.0-98.6)
[2025-05-25 16:51] LABS: ABG A-A DIFF O2 581.7 mmHg (10-20.0); ALLEN TEST, BLOOD GAS Positive; O2 DEVICE,BLOOD GAS BIPAP (ROOM AIR); PATIENT RATE, BG 30.0 min.; PEEP,BG 8 cm H2O; SITE, BLOOD GAS RT RADIAL
[2025-05-25 16:52] LABS: SPONTANEOUS VT, BG 450 ml
[2025-05-25 17:46] LABS: GLUCOMETER DEV NAME(LOC) ICUN.6; GLUCOSE,POINT OF CARE 239 MG/DL (70-110)
[2025-05-26] VITALS (21 sets, daily range): BP systolic 116–149; BP diastolic 49–80; PULSE 47–89; RESP 13–31; TEMP 97.9–98.5; O2SAT 80–100
[2025-05-26 05:35] LABS: GLUCOMETER DEV NAME(LOC) ICU.S7; GLUCOSE,POINT OF CARE 278 MG/DL (70-110)
[2025-05-26 05:52] LABS: PLATELET COUNT (AUTO) 267 K/uL (150-450); RED BLOOD CELL COUNT(AUTO) 3.63 MIL/uL (4.00-5.20); RED CELL DISTRIBUTION WIDTH 28.8 % (11.5-14.5); WHITE BLOOD COUNT (AUTO) 9.9 K/uL (4.5-11.0)
[2025-05-26 06:05] LABS: ASPARTATE AMINOTRANSFERASE 10.0 U/L (15-37); CALCIUM, TOTAL 8.5 mg/dL (8.8-10.5); CREATININE 1.2 mg/dL (0.60-1.30); GLOMERULAR FILTR. RATE CALC 44.0 mL/min (>60); GLUCOSE,RANDOM 324.0 mg/dL (70-110); PHOSPHORUS 4.8 mg/dL (2.5-4.9); SODIUM SERUM 138.0 mmol/L (136-145); TOTAL PROTEIN, SERUM 6.2 g/dL (6.4-8.2); UREA NITROGEN, BLOOD 32.0 mg/dL (7-18)
[2025-05-26 08:55] LABS: RBC MORPHOLOGY COMMENT DIMORPHIC RBC
[2025-05-26 09:11] LABS: GLUCOMETER DEV NAME(LOC) ICUN.6; GLUCOSE,POINT OF CARE 336 MG/DL (70-110)
[2025-05-26 09:11] LABS: GLUCOMETER DEV NAME(LOC) ICUN.6; GLUCOSE,POINT OF CARE 338 MG/DL (70-110)
[2025-05-26] MEDS: INSULIN GLARGINE,HUM.REC.ANLOG 100 UNITS/ML SQ SCH (09:14)
[2025-05-26 12:05] LABS: GLUCOMETER DEV NAME(LOC) 5S.2D; GLUCOSE,POINT OF CARE 267 MG/DL (70-110)
[2025-05-26 15:06] LABS: GLUCOMETER DEV NAME(LOC) ICU.S7; GLUCOSE,POINT OF CARE 287 MG/DL (70-110)
[2025-05-26 20:25] LABS: GLUCOMETER DEV NAME(LOC) ICUN.6; GLUCOSE,POINT OF CARE 213 MG/DL (70-110)
[2025-05-26] MEDS: FUROSEMIDE 40 MG/4 ML VIAL IVP SCH (22:06)
[2025-05-26 23:56] LABS: GLUCOMETER DEV NAME(LOC) ICU.S7; GLUCOSE,POINT OF CARE 171 MG/DL (70-110)
[2025-05-27] VITALS (16 sets, daily range): BP systolic 140–147; BP diastolic 78–89; PULSE 74–109; RESP 18–34; TEMP 98–98.7; O2SAT 86–97
[2025-05-27 06:02] LABS: PLATELET COUNT (AUTO) 331 K/uL (150-450); RED BLOOD CELL COUNT(AUTO) 3.97 MIL/uL (4.00-5.20); RED CELL DISTRIBUTION WIDTH 29.2 % (11.5-14.5); WHITE BLOOD COUNT (AUTO) 13.4 K/uL (4.5-11.0)
[2025-05-27 06:07] LABS: CALCIUM, TOTAL 9.1 mg/dL (8.8-10.5); CREATININE 1.28 mg/dL (0.60-1.30); GLOMERULAR FILTR. RATE CALC 41.0 mL/min (>60); GLUCOSE,RANDOM 246.0 mg/dL (70-110); SODIUM SERUM 140.0 mmol/L (136-145); UREA NITROGEN, BLOOD 37.0 mg/dL (7-18)
[2025-05-27 06:11] LABS: PHOSPHORUS 4.3 mg/dL (2.5-4.9)
[2025-05-27 09:34] LABS: PLATELET MORPHOLOGY COMMENT GIANT PLTS PRESENT; RBC MORPHOLOGY COMMENT DIMORPHIC RBC
[2025-05-27 10:06] LABS: GLUCOMETER DEV NAME(LOC) ICU.S7; GLUCOSE,POINT OF CARE 242 MG/DL (70-110)
[2025-05-27 12:56] LABS: GLUCOMETER DEV NAME(LOC) ICU.S7; GLUCOSE,POINT OF CARE 264 MG/DL (70-110)
[2025-05-27] MEDS: MORPHINE SULFATE 4 MG/ML SYRINGE IVP PRN (15:48)
[2025-05-27 18:00] LABS: GLUCOMETER DEV NAME(LOC) ICU.S7; GLUCOSE,POINT OF CARE 250 MG/DL (70-110)
== END 2025-05-27 19:45 | DRG 291 ==
LOC: EMS 11:59 → EDH 13:12 → ICU 21:10 → 5S 05-20 18:40 → ICU 05-25 09:45
PROVIDERS: ADMIT Internal Medicine; ATTEND Internal Medicine
PROC: 5A09357 Assistance with Respiratory Ventilation, Less than 24 Consecutive Hours, Continuous Positive Airway Pressure (ICD-10-PCS; principal; 2025-05-18)
PROC: 5A09357 Assistance with Respiratory Ventilation, Less than 24 Consecutive Hours, Continuous Positive Airway Pressure (ICD-10-PCS; 2025-05-19)
PROC: 30233N1 Transfusion of Nonautologous Red Blood Cells into Peripheral Vein, Percutaneous Approach (ICD-10-PCS; 2025-05-20)
PROC: 5A09357 Assistance with Respiratory Ventilation, Less than 24 Consecutive Hours, Continuous Positive Airway Pressure (ICD-10-PCS; 2025-05-25)
PROC: 05HC33Z Insertion of Infusion Device into Left Basilic Vein, Percutaneous Approach (ICD-10-PCS; 2025-05-25)
PROC: 05HB33Z Insertion of Infusion Device into Right Basilic Vein, Percutaneous Approach (ICD-10-PCS; 2025-05-25)
PROC: B54PZZA Ultrasonography of Bilateral Upper Extremity Veins, Guidance (ICD-10-PCS; 2025-05-25)
PROC: 5A0945A Assistance with Respiratory Ventilation, 24-96 Consecutive Hours, High Flow/Velocity Cannula (ICD-10-PCS; 2025-05-26)
DX: I11.0 Hypertensive heart disease with heart failure (principal); I50.33 Acute on chronic diastolic (congestive) heart failure; J18.9 Pneumonia, unspecified organism; J96.01 Acute respiratory failure with hypoxia; J44.1 Chronic obstructive pulmonary disease with (acute) exacerbation; J44.0 Chronic obstructive pulmonary disease with (acute) lower respiratory infection; K92.2 Gastrointestinal hemorrhage, unspecified; E87.20 Acidosis, unspecified; D63.8 Anemia in other chronic diseases classified elsewhere; D50.9 Iron deficiency anemia, unspecified; E66.01 Morbid (severe) obesity due to excess calories; E11.65 Type 2 diabetes mellitus with hyperglycemia; F17.210 Nicotine dependence, cigarettes, uncomplicated; Z53.20 Procedure and treatment not carried out because of patient's decision for unspecified reasons; Y95 Nosocomial condition; Z88.0 Allergy status to penicillin; I25.2 Old myocardial infarction; Z88.1 Allergy status to other antibiotic agents; Z91.199 Patient's noncompliance with other medical treatment and regimen due to unspecified reason; Z68.34 Body mass index [BMI] 34.0-34.9, adult; Z90.49 Acquired absence of other specified parts of digestive tract
CPT/HCPCS: 36245; 36569; 71045; 71250; 72192; 74150; 76937; 80048; 80053; 82009; 82271; 82550; 82805; 82962; 83605; 83690; 83735; 83880; 84100; 84484; 85014; 85018; 85025; 86850; 86900; 86901; 86923; 87040; 87081; 92610; 93005; 93306; 93970; 94640; 94660; 94667; 94668; 94760; 97163; 97530; 99291; G0378; J0456; J0692; J0696; J1815; J1938; J2270; J2405; J2470; J2919; J7030; J7050; J7060; P9016; 36415-L1; 36415-TC; J7613